=== PATIENT | female | born 1970 | race Two or more races ===

== ENCOUNTER 2018-10-26 04:25 | Emergency (ER) | payer SELFPAY ==
[2018-10-26 04:41] VITALS: BMI 29.5
--- NOTE | 2018-10-26 04:45 | PDOC ---
*Physical Exam - Vital Signs Last Vital Signs Temp Pulse Resp BP Pulse Ox 98.8 F 65 22 H 127/82 100 10/26/18 04:27 10/26/18 04:27 10/26/18 04:27 10/26/18 04:27 10/26/18 04:27 ED Treatment Course - LABORATORY CBC & Chemistry Diagram: 10/26/18 06:30 10/26/18 06:30 Medical Decision Making - Medical Decision Making 10/26/18 04:44 Patient seen by the advanced practice provider under my direct supervision. Ancillary testing reviewed as necessary. I agree with plan as outlined by the advanced practice provider. 10/27/18 19:51 pt signed out to day shift pending further evaluation *DC/Admit/Observation/Transfer Diagnosis at time of Disposition: Abdominal pain Qualifiers: Abdominal location: generalized Qualified Code(s): R10.84 - Generalized abdominal pain - Discharge Dispostion Disposition: TRANSFER ACUTE CARE/OTHER HOSP Condition at time of disposition: Fair - Prescriptions Prescriptions: Acetaminophen [Tylenol -] 1,000 mg PO Q6H #30 tablet Ibuprofen 800 mg PO TID #30 tablet Ondansetron [Zofran Odt -] 4 mg SL TID #10 od.tablet Ranitidine [Zantac -] 150 mg PO BID #28 tablet - Referrals Referrals: Gomez Sibley MD [Staff Physician] - - Patient Instructions Printed Discharge Instructions: DI for Abdominal Pain-Adult Additional Instructions: Your CT scan shows liver disease, however,there was no acute reason for your abdominal pain Please follow up with a loom blower for further evaluation. A referral has been provided to you Take the medication as prescribed to help with your pain Return to the ED for any new or worsening symptoms - Post Discharge Activity
[2018-10-26] MEDS ORDERED: ONDANSETRON 4 MG/2 ML VIAL IVPUSH ONE (04:46)
[2018-10-26] MEDS ORDERED: ONDANSETRON 4 MG/2 ML VIAL ONE (04:49)
[2018-10-26] MEDS ORDERED: FAMOTIDINE 20 MG/50 ML IVPB 20 MG/50 ML MG IVPB ONE ×2 (04:52→04:59)
[2018-10-26] MEDS ORDERED: SODIUM CHLORIDE 0.9% 500 ML INFUS.BAG IV ONE (04:52)
--- NOTE | 2018-10-26 04:55 | PDOC ---
History of Present Illness - General Chief Complaint: Pain Stated Complaint: ABD PAIN Time Seen by Provider: 10/26/18 04:33 History Source: Patient - History of Present Illness Initial Comments: 10/26/18 05:11 47 year old female c/o generalized abdominal pain and vomiting on and off x 2 months. patient reports poor pain control. patient has a past medical history of hypertension, cardiomyopathy, gastric sleeve surgery 1 year ago. patient has been following up OSH ER and was given percocet for pain. Past History - Past Medical History Allergies/Adverse Reactions: Allergies Allergy/AdvReac Type Severity Reaction Status Date / Time No Known Allergies Allergy Verified 10/26/18 12:22 Home Medications: Ambulatory Orders Carvedilol [Coreg -] 6.25 mg PO BID 10/29/14 Lisinopril [Zestril] 10 mg PO ASDIR 10/29/14 Oxycodone HCl/Acetaminophen [Percocet 5/325 -] 1 tab PO Q4H PRN #24 tablet 10/29 Acetaminophen [Tylenol -] 1,000 mg PO Q6H #30 tablet 10/26/18 Ibuprofen 800 mg PO TID #30 tablet 10/26/18 Ondansetron [Zofran Odt -] 4 mg SL TID #10 od.tablet 10/26/18 Ranitidine [Zantac -] 150 mg PO BID #28 tablet 10/26/18 Cancer: Yes Diabetes: Yes HTN: Yes - Surgical History Cardiac Surgery: Yes (PACEMAKER) - Suicide/Smoking/Psychosocial Hx Smoking History: Never smoked Have you smoked in the past 12 months: No Information on smoking cessation initiated: No Hx Alcohol Use: No Drug/Substance Use Hx: No Substance Use Type: None Review of Systems - Review of Systems Able to Perform ROS?: Yes Is the patient limited Surinamese proficient: No Constitutional: No: Symptoms Reported, See HPI, Chills, Diaphoresis, Fever, Loss of Appetite, Malaise, Night Sweats, Weakness, Weight Stable, Unintentional Wgt. Loss, Unexplained wgt Loss, Other *Physical Exam - Vital Signs Last Vital Signs Temp Pulse Resp BP Pulse Ox 98.8 F 65 22 H 127/82 100 10/26/18 04:27 10/26/18 04:27 10/26/18 04:27 10/26/18 04:27 10/26/18 04:27 - Physical Exam General Appearance: Yes: Apparent Distress Respiratory/Chest: positive: Lungs Clear, Normal Breath Sounds Gastrointestinal/Abdominal: positive: Normal Bowel Sounds, Tender (generalized) Integumentary: positive: Dry, Warm Neurologic: positive: Fully Oriented, Alert ED Treatment Course - LABORATORY CBC & Chemistry Diagram: 10/26/18 06:30 10/26/18 06:30 - Medications Given in the ED: ED Medications Discontinued Medications Generic Name Dose Route Start Last Admin Trade Name Seth PRN Reason Stop Dose Admin Ondansetron HCl 4 mg 10/26/18 04:46 10/26/18 04:52 Zofran Injection IVPUSH 10/26/18 04:47 4 mg ONCE ONE Administration Sodium Chloride 1,000 ml 10/26/18 04:52 10/26/18 04:53 Normal Saline - IV 10/26/18 04:53 1,000 ml ONCE ONE Administration Progress Note - Progress Note Progress Note: A: abdominal pain P: labs IVF zofran pepcid morphine CTAP Medical Decision Making - Medical Decision Making 10/26/18 06:[address] [facility] unable to get info on patient's recent visit/ 10/26/18 06:07 patient is refusing labs until pain is controlled. patient was already given morphine few minutes prior to reevaluation. 10/26/18 0700 patient signed out to GUERITA Kennedy. pending labs and CTAP/ *DC/Admit/Observation/Transfer Diagnosis at time of Disposition: Abdominal pain Qualifiers: Abdominal location: generalized Qualified Code(s): R10.84 - Generalized abdominal pain - Discharge Dispostion Disposition: HOME Condition at time of disposition: Fair - Prescriptions Prescriptions: Acetaminophen [Tylenol -] 1,000 mg PO Q6H #30 tablet Ibuprofen 800 mg PO TID #30 tablet Ondansetron [Zofran Odt -] 4 mg SL TID #10 od.tablet Ranitidine [Zantac -] 150 mg PO BID #28 tablet - Referrals Referrals: Gomez Sibley MD [Staff Physician] - - Patient Instructions Printed Discharge Instructions: DI for Abdominal Pain-Adult Additional Instructions: Your CT scan shows liver disease, however,there was no acute reason for your abdominal pain Please follow up with a dramatic critic for further evaluation. A referral has been provided to you Take the medication as prescribed to help with your pain Return to the ED for any new or worsening symptoms - Post Discharge Activity
[2018-10-26] MEDS ORDERED: morphine CARPU-JECT 4 MG/1 ML DISP.SYRIN IVPUSH ONE ×2 (05:26→07:55)
[2018-10-26] MEDS ORDERED: morphine SULFATE 4 MG/ML VIAL ONE (05:41)
[2018-10-26] MEDS ORDERED: ACETAMINOPHEN 1000 MG/100 ML VIAL (NON FORMULARY) IVPB ONE (06:27)
[2018-10-26] MEDS ORDERED: ACETAMINOPHEN INJECTION 100 ML IVPB ONE (06:28)
[2018-10-26 06:36] LABS: BASO % 0.6 % (0-2.0); EOS % 0.7 % (0-4.5); HEMATOCRIT 37.8 % (32.4-45.2); HEMOGLOBIN 12.6 GM/dL (10.7-15.3); MCHC 33.3 g/dl (32.0-36.0); MEAN PLT VOLUME 8.9 fl (7.5-11.1); MONO % 3.7 % (3.8-10.2); PLATELET COUNT 169 K/MM3 (134-434); RBC 4.35 M/mm3 (3.60-5.2); RDW 13.8 % (11.6-15.6)
[2018-10-26 07:19] LABS: ALBUMIN 3.5 g/dl (3.4-5.0); ALK PHOS 113 U/L (45-117); ANION GAP 9 MMOL/L (8-16); BILIRUBIN,TOTAL 1.3 mg/dL (0.2-1); BLOOD UREA NITROGEN 15 mg/dL (7-18); CALCIUM 8.8 mg/dL (8.5-10.1); CHLORIDE 107 mmol/L (98-107); CO2 22 mmol/L (21-32); CREATININE 0.8 mg/dL (0.55-1.3); GLUCOSE,RANDOM 117 mg/dL (74-106); LIPASE 198 U/L (73-393); SGOT/AST 86 U/L (15-37); SGPT/ALT 51 U/L (13-61); SODIUM 137 mmol/L (136-145); TOT PROT 7.7 g/dl (6.4-8.2)
--- NOTE | 2018-10-26 07:19 | PDOC ---
*Physical Exam - Vital Signs Last Vital Signs Temp Pulse Resp BP Pulse Ox 98.8 F 65 22 H 127/82 100 10/26/18 04:27 10/26/18 04:27 10/26/18 04:27 10/26/18 04:27 10/26/18 04:27 - Physical Exam General Appearance: Yes: Nourished, Appropriately Dressed. No: Apparent Distress ED Treatment Course - LABORATORY CBC & Chemistry Diagram: 10/26/18 06:30 10/26/18 06:30 - ADDITIONAL ORDERS Additional order review: Laboratory Results 10/26/18 06:30 Serum , Qual Negative 10/26/18 06:30 RBC 4.35 MCV 87.0 MCHC 33.3 RDW 13.8 MPV 8.9 Neutrophils % 81.0 Lymphocytes % 14.0 Monocytes % 3.7 L Eosinophils % 0.7 Basophils % 0.6 - Medications Given in the ED: ED Medications Discontinued Medications Generic Name Dose Route Start Last Admin Trade Name Kevinq PRN Reason Stop Dose Admin Acetaminophen 1,000 mg 10/26/18 06:27 10/26/18 06:33 Ofirmev Injection - IVPB 10/26/18 06:28 1,000 mg ONCE ONE Administration Famotidine/Sodium Chloride 20 mg in 50 mls @ 100 mls/hr 10/26/18 04:52 05:05 Pepcid 20 Mg Premixed Ivpb - IVPB 10/26/18 05:21 100 mls/hr ONCE ONE Administration Morphine Sulfate 4 mg 10/26/18 05:26 10/26/18 05:48 Morphine Injection - IVPUSH 10/26/18 05:27 4 mg ONCE ONE Administration Ondansetron HCl 4 mg 10/26/18 04:46 10/26/18 04:52 Zofran Injection IVPUSH 10/26/18 04:47 4 mg ONCE ONE Administration Sodium Chloride 1,000 ml 10/26/18 04:52 10/26/18 04:53 Normal Saline - IV 10/26/18 04:53 1,000 ml ONCE ONE Administration Medical Decision Making - Medical Decision Making 10/26/18 07:18 Sign out received from JACK Baez. Pt came for evaluation of abdominal pain. States she is currently in pain. Pt received Morphine and Ofirmev within the hour. Will hold off on more medications at this time. Pending labs so pt can go to CT 10/26/18 10:25 Pt appears more comfortable after morphine. CT scans shows diffuse fatty liver infiltration, distended gall bladder without wall thickening, stones or signs of cholecystitis Pt refuses abdominal exam Will give one shot of toradol and dc home Pt states she has an appointment with her primary care doctor today I discussed the physical exam findings, ancillary test results and final diagnoses with the patient. I answered all of the patient's questions. The patient was satisfied with the care received and felt comfortable with the discharge plan and treatment plan. The Patient agrees to follow up with the primary care physician/specialist within 24-72 hours. Return precautions were given. *DC/Admit/Observation/Transfer Diagnosis at time of Disposition: Abdominal pain Qualifiers: Abdominal location: generalized Qualified Code(s): R10.84 - Generalized abdominal pain - Discharge Dispostion Disposition: HOME Condition at time of disposition: Fair Decision to Admit order: No - Prescriptions Prescriptions: Acetaminophen [Tylenol -] 1,000 mg PO Q6H #30 tablet Ibuprofen 800 mg PO TID #30 tablet Ondansetron [Zofran Odt -] 4 mg SL TID #10 od.tablet Ranitidine [Zantac -] 150 mg PO BID #14 tablet Ranitidine [Zantac -] 150 mg PO BID #28 tablet - Referrals Referrals: Gomez Sibley MD [Staff Physician] - - Patient Instructions Printed Discharge Instructions: DI for Abdominal Pain-Adult Additional Instructions: Your CT scan shows liver disease, however,there was no acute reason for your abdominal pain Please follow up with a histology supervisor for further evaluation. A referral has been provided to you Take the medication as prescribed to help with your pain Return to the ED for any new or worsening symptoms - Post Discharge Activity
[2018-10-26] MEDS ORDERED: SODIUM CHLORIDE 1,000 ML IV STA (07:45)
[2018-10-26] MEDS ORDERED: MORPHINE SULFATE 10 MG/1 ML *VIAL ONE (07:58)
[2018-10-26] MEDS ORDERED: KETOROLAC TROMETHAMINE 30 MG/1 ML VIAL IVPUSH ONE (09:44)
[2018-10-26] MEDS ORDERED: KETOROLAC TROMETHAMINE 30 MG/1 ML VIAL ONE (09:48)
[2018-10-26 11:04] VITALS: BP 102/48; PULSE 87; TEMP 98.7
[2018-10-27 09:56] LABS: LDH 328 U/L (84-246)
--- NOTE | 2018-10-27 10:36 | PDOC ---
Patient Follow-up (Call Back) - Post ED Follow - Up Condition at time of discharge: Fair Disposition at time of original discharge: TRANSFER ACUTE CARE/OTHER HOSP Reason for Call Back: Abnwl. Microbiology (Pt with GNB in blood cx. Pt was transferred to [facility]. Results d/w Dr. Almonte of the MICU and preliminary results faxed to unit. . MICU phone# [phone])
== END 2018-10-26 11:11 | disposition short-term general hospital (02) ==
LOC: JER 04:25
PROC: 3E0337Z Introduction of Electrolytic and Water Balance Substance into Peripheral Vein, Percutaneous Approach (ICD-10-PCS; principal; 2018-10-26)
PROC: 3E0333Z Introduction of Anti-inflammatory into Peripheral Vein, Percutaneous Approach (ICD-10-PCS; 2018-10-26)
PROC: 3E033NZ Introduction of Analgesics, Hypnotics, Sedatives into Peripheral Vein, Percutaneous Approach (ICD-10-PCS; 2018-10-26)
PROC: 3E033NZ Introduction of Analgesics, Hypnotics, Sedatives into Peripheral Vein, Percutaneous Approach (ICD-10-PCS; 2018-10-26)
DX: R10.84 Generalized abdominal pain (principal); I10 Essential (primary) hypertension; I11.9 Hypertensive heart disease without heart failure; I43 Cardiomyopathy in diseases classified elsewhere; Z98.84 Bariatric surgery status
CPT/HCPCS: 36415; 74177-TC; 80053; 83615; 83690; 84702; 84703; 85025; 99282-25; J0131; J7030

== ENCOUNTER 2018-10-26 12:18 | Emergency (ER) | payer OTHER ==
[2018-10-26 12:37] VITALS: BMI 29.5
[2018-10-26] MEDS ORDERED: SODIUM CHLORIDE 0.9% 1000 ML INFUS.BAG IV ONE ×4 (12:37→19:40)
--- NOTE | 2018-10-26 12:43 | PDOC ---
History of Present Illness - General Chief Complaint: Blood Pressure Problem Stated Complaint: LOW BLOOD PRESSURE Time Seen by Provider: 10/26/18 12:32 History Source: Patient, Care Provider Exam Limitations: Clinical Condition - History of Present Illness Initial Comments: 10/26/18 12:41 47F with a PMH of HTN, cardiomyopathy, and gastric sleeve 1 year ago who presents to the ER altered after a possible syncopal episode. Pt was discharged at 1000 this morning and was waiting for her care provider in the waiting room. Care provider states that the patient was slouched over and altered. Pt denies taking any medications or illicit substances. Pt cannot provide any further history. Pt's only acute complaint is abdominal pain. Past History - Past Medical History Allergies/Adverse Reactions: Allergies Allergy/AdvReac Type Severity Reaction Status Date / Time No Known Allergies Allergy Verified 10/26/18 12:22 Home Medications: Ambulatory Orders Carvedilol [Coreg -] 6.25 mg PO BID 10/29/14 Lisinopril [Zestril] 10 mg PO ASDIR 10/29/14 Oxycodone HCl/Acetaminophen [Percocet 5/325 -] 1 tab PO Q4H PRN #24 tablet 10/29 Acetaminophen [Tylenol -] 1,000 mg PO Q6H #30 tablet 10/26/18 Ibuprofen 800 mg PO TID #30 tablet 10/26/18 Ondansetron [Zofran Odt -] 4 mg SL TID #10 od.tablet 10/26/18 Ranitidine [Zantac -] 150 mg PO BID #28 tablet 10/26/18 Cancer: Yes COPD: No Diabetes: Yes HTN: Yes - Surgical History Cardiac Surgery: Yes (PACEMAKER) - Suicide/Smoking/Psychosocial Hx Smoking History: Unknown if ever smoked Have you smoked in the past 12 months: No Hx Alcohol Use: No Drug/Substance Use Hx: No Substance Use Type: None Review of Systems - Review of Systems Able to Perform ROS?: No (clinical condition) *Physical Exam - Vital Signs Last Vital Signs Temp Pulse Resp BP Pulse Ox 80 12 57/30 L 97 10/26/18 12:20 10/26/18 12:20 10/26/18 12:20 10/26/18 12:20 - Physical Exam Comments: 10/26/18 13:14 GENERAL: Well developed, well nourished. Awake and alert. No acute distress. HEENT: Normocephalic, atraumatic. Hearing grossly normal. Moist mucous membranes. PERRLA, EOMI. No conjunctival pallor. Sclera are non-icteric. NECK: Supple. Full ROM. No JVD. CARDIOVASCULAR: Regular rate and rhythm. No murmurs, rubs, or gallops. PULMONARY: No evidence of respiratory distress. Lungs clear to auscultation bilaterally. No wheezing, rales or rhonchi. ABDOMINAL: Soft. Diffuse tenderness. Non-distended. No rebound or guarding. MUSCULOSKELETAL: Normal range of motion at all joints. No bony deformities or tenderness. EXTREMITIES: No cyanosis. No clubbing. No edema. No calf tenderness or swelling. SKIN: Warm and dry. Normal capillary refill. No rashes. No jaundice. NEUROLOGICAL: Alert, awake, appropriate. Cranial nerves 2-12 grossly intact. Normal speech. PSYCHIATRIC: Cooperative. Good eye contact. Appropriate mood and affect. ED Treatment Course - LABORATORY CBC & Chemistry Diagram: 10/26/18 12:35 10/26/18 12:35 - RADIOLOGY Radiology Studies Ordered: Category Date Time Status CHEST X-RAY PORTABLE* [RAD] Stat Radiology 10/26/18 12:33 Ordered Medical Decision Making - Medical Decision Making 10/26/18 13:39 47F with MMP who presents altered with abdominal pain, recently discharged from our ED, and hypotensive. Fluids started immediately. Pt vomiting bilious fluids with elevated liver enzymes, new from 4 hours ago. Concern for cholecystitis vs choledocholithiasis. RUQ US ordered. Giving reglan for nausea control and abx for empiric coverage. 10/26/18 15:00 POCUS shows thickened GB wall 0.9 cm with pericholecystic fluid concerning for cholecystitis. Surgery paged. Continuing resuscitation. 10/26/18 16:13 Dr. Calzada, ICU resident, aware of pt. Lipase elevated. GI paged. Continuing resuscitation. IVF and IV abx given. Pt mentating well c/w prior presentation. GUERITA Joiner, surgery, evaluating patient. 10/26/18 17:[address] Hao Pizano for admission. 10/26/18 19:28 Pt's BP 90's/50's after 3 liters. Central line placed in sterile fashion. Blood flow and return noted at 3 ports. Pending portable CXR. Case d/w inpt team and suggestion for transfer. Attending d/w Dr. Abernathy at [facility] for transfer. Dr. Abernathy accepts transfer. Will start levophed and titrate to systolic of 120. 10/26/18 19:[address] Augustine at [facility]. 10/26/18 19:[address] Haile for care until transfer. *DC/Admit/Observation/Transfer Diagnosis at time of Disposition: Cholecystitis, Pancreatitis - Discharge Dispostion Disposition: TRANSFER ACUTE CARE/OTHER HOSP Condition at time of disposition: Critical Decision to Admit order: No - Referrals - Patient Instructions - Post Discharge Activity - Transfer to Acute Care Facility Receiving Facility: [facility] Accepting Physician:: Dr. Abernathy
[2018-10-26] MEDS ORDERED: METOCLOPRAMIDE HCL INJECTION 10 MG/2 ML VIAL IVPB ONE (12:46)
[2018-10-26 12:51] LABS: HEMATOCRIT 44.2 % (32.4-45.2); HEMOGLOBIN 14.5 GM/dL (10.7-15.3); MCH 28.8 pg (25.7-33.7); MCHC 32.8 g/dl (32.0-36.0); MEAN CELL VOLUME 87.8 fl (80-96); MEAN PLT VOLUME 9.1 fl (7.5-11.1); PLATELET COUNT 175 K/MM3 (134-434); RBC 5.03 M/mm3 (3.60-5.2); RDW 14.1 % (11.6-15.6); WHITE BLOOD COUNT 8.9 K/mm3 (4.0-10.0)
[2018-10-26] MEDS ORDERED: METOCLOPRAMIDE HCL INJECTION 10 MG/2 ML VIAL ONE (13:06)
--- NOTE | 2018-10-26 13:12 | PDOC ---
Attending Attestation - Resident Resident Name: Cholo Mclainony - ED Attending Attestation I have performed the following: I have examined & evaluated the patient, The case was reviewed & discussed with the resident, I agree w/resident's findings & plan - HPI HPI: 10/26/18 13:10 47-year-old female history of gastric bypass evaluated here over the last few hours for acute on chronic abdominal pain, had negative workup including labs and CAT scan of the abdomen and pelvis with improved symptoms after receiving IV morphine 2, discharged very well-appearing and alert and ambulatory, was waiting in the waiting room for her ride to pick her up and was found to be somnolence. Patient is arousable to voice, complaining of lightheadedness and nausea. Denies taking any medications since discharge - Physicial Exam PE: 10/26/18 13:11 Hypotensive, not tachycardic Moving all extremities, pupils are symmetric Heart is regular, abdomen is soft and nondistended Neurologically nonfocal - Critical Care Time Total Critical Care Time: 50 Critical Care Statement: The care of this patient involved high complexity decision making to prevent further life threatening deterioration of the patient 's condition and/or to evaluate & treat vital organ system(s) failure or risk of failure. - Medical Decision Making 10/26/18 13:11 47-year-old female with chronic abdominal pain and negative ED workup, received 2 doses of IV morphine but discharged alert and well-appearing now with somnolence/altered mental status without evidence of trauma. Blood pressure decreased, heart rate otherwise normal. Check labs, EKG IV fluid resuscitation CT head, tox workup Close monitoring 10/26/18 14:31 nl wbc but newly elevated LFTs. Given CT finding of distended gallbladder, concern for acute cholecystitis. ivf resuscitation, iv abx RUQ U/S when can tolerate surgery consult, admission 10/26/18 15:04 bedside u/s shows distended GB, wall thickening with pericholecystic fluid. wbc wnl but 11.9 bands sending lactate/cultures BP improved to 70s systolic after iv fluids, continue iv fluids and consider pressors icu admission, surgery consult 10/26/18 16:08 lipase also markedly elevated, concerning for acute choledocholithiasis ivf resuscitated, received abx, GI, gen surg, ICU consulted mental status markedly improved Heart Score/ECG Review #1 ECG reviewed & interpreted by me at: 13:04 General ECG Interpretation: Sinus Rhythm (early beats a-sensed), Normal Rate (85 ), Normal Intervals (qtc 540), No acute ischemic changes
[2018-10-26 13:25] LABS: ALBUMIN 3.4 g/dl (3.4-5.0); ALK PHOS 180 U/L (45-117); ANION GAP 11 MMOL/L (8-16); BILIRUBIN,TOTAL 3.3 mg/dL (0.2-1); BLOOD UREA NITROGEN 15 mg/dL (7-18); CALCIUM 9.2 mg/dL (8.5-10.1); CHLORIDE 108 mmol/L (98-107); CO2 19 mmol/L (21-32); CREATININE 1.2 mg/dL (0.55-1.3); GLUCOSE,RANDOM 109 mg/dL (74-106); POTASSIUM 3.6 mmol/L (3.5-5.1); SGOT/AST 625 U/L (15-37); SGPT/ALT 364 U/L (13-61); SODIUM 138 mmol/L (136-145); TOT PROT 7.4 g/dl (6.4-8.2)
[2018-10-26] MEDS ORDERED: PIPERACILLIN/TAZOB 4.5 GM 4.5 GM in DEXTROSE 5%-WATER 100 ML IVPB ONE (13:28)
[2018-10-26] MEDS ORDERED: PIPERACILLIN/TAZOB 4.5 GM 4.5 GM/100 ML BAG IVPB ONE (14:09)
[2018-10-26 14:29] LABS: ANISOCYTOSIS 1+; MACROCYTOSIS 0; PLATELET ESTIMATE NORMAL
[2018-10-26 14:53] LABS: INR 1.07 (0.83-1.09); PROTHROMBIN TIME (PATIENT) 12.6 SEC (9.7-13.0)
--- NOTE | 2018-10-26 15:03 | EKG ---
Test Reason : Blood Pressure : / mmHG Vent. Rate : 085 BPM Atrial Rate : 085 BPM P-R Int : 150 ms QRS Dur : 130 ms QT Int : 454 ms P-R-T Axes : 068 -60 -39 degrees QTc Int : 540 ms NORMAL SINUS RHYTHM Fusion complexes suggesting PPM failure to sense Atrial-sensed ventricular-paced rhythm ABNORMAL ECG NO PREVIOUS ECGS AVAILABLE Confirmed by MD Gunnar, Luis ([id number]) on 10/26/2018 3:03:01 PM Referred By: Confirmed By:Luis Maher MD
[2018-10-26 15:48] LABS: LIPASE 17851 U/L (73-393)
--- NOTE | 2018-10-26 16:19 | CONSULT ---
Consult Consult Specialty:: General Surgery - Dev Gentile Referred by:: ED Attending Reason for Consultation:: ABD pain. Elevated LFTs. - History of Present Illness Chief Complaint: Intermittent ABD pain x 2 months with n/v History of Present Illness: Called to nikolay 47F w/ PMHx as noted below. Patient comes to [facility] Ed w/ c/o chronic intermittent ABD pain x 1 month. She was being observed for the past couple of hours because her work-up thus far has been negative (ABD/Pelvis CT scan, LABS). Per ED Resident, patient's symptoms seemed to resolved after receiving IV Morphine x 2 doses. She was set to be discharged home today. While seated in waiting room for her ride, she was found to be somnolent. According to documentation, she is arousable to voice, c/o of lightheadedness and nausea. Denies taking any medications since discharge. Patient states she's typically goes to [facility] when the ABD pain acts-up. States they usually give her pain medication and send her home. ED attending at [facility] ED performed bedside U/S and ANALY. Below are the results. Her LFTs apparently also are now elevated compared to earlier set of labs. Patient started her menses today (10/26/18). States she hasn't eaten anything since yesterday. Focused ED RUQ ultrasound. Indication: ^ LFT's, hypotension Several small gallstones, + wall thickening up to 9 mm, wall edema. no sonographic torres's CBD not dilated (<4 mm). + perihepatic/ pericholecystic fluid noted. Impression: cholecystitis/lithiasis, pc fluid and wall edema. small trace fluid in pelvis (chronic liver disease and chf) Focused ED TTE Indication hypotension, h/o CHF No pericardial effusion identified. Moderate to severe reduced contractility. Some dyskinetic wall motion noted in parasternal long view. no RV dilation . Impression: moderate to severe reduced contractility - History Source History Provided By: Patient Limitations to Obtaining History: No Limitations - Past Medical History Cardio/Vascular: Yes: CHF, Deep Vein Thrombosis, HTN Pulmonary: Yes: Pulmonary Embolus ...LMP Comment: Started 10/26/18 - Past Surgical History Past Surgical History: Yes: Bariatric Surgery (Sleeve Gastrectomy), ( x 2), Permanent Pacemaker - Alcohol/Substance Use Hx Alcohol Use: No - Smoking History Smoking history: Unknown if ever smoked Have you smoked in the past 12 months: No - Social History ADL: Independent History of Recent Travel: No Home Medications - Allergies Allergies/Adverse Reactions: Allergies Allergy/AdvReac Type Severity Reaction Status Date / Time No Known Allergies Allergy Verified 10/26/18 12:22 - Home Medications Home Medications: Ambulatory Orders Carvedilol [Coreg -] 6.25 mg PO BID 10/29/14 Lisinopril [Zestril] 10 mg PO ASDIR 10/29/14 Oxycodone HCl/Acetaminophen [Percocet 5/325 -] 1 tab PO Q4H PRN #24 tablet 10/29 Acetaminophen [Tylenol -] 1,000 mg PO Q6H #30 tablet 10/26/18 Ibuprofen 800 mg PO TID #30 tablet 10/26/18 Ondansetron [Zofran Odt -] 4 mg SL TID #10 od.tablet 10/26/18 Ranitidine [Zantac -] 150 mg PO BID #28 tablet 10/26/18 Family Disease History - Family Disease History Family History: Unremarkable Review of Systems - Review of Systems Constitutional: reports: Lethargy, Loss of Appetite. denies: Night Sweats, Weakness Eyes: reports: No Symptoms HENT: reports: No Symptoms Neck: reports: No Symptoms Cardiovascular: denies: Chest Pain, Edema, Palpitations, Shortness of Breath Respiratory: denies: Cough, SOB, SOB on Exertion, Wheezing Gastrointestinal: reports: Abdominal Pain, Diarrhea, Nausea, Vomiting. denies: Melena, Rectal Bleeding Genitourinary: reports: No Symptoms Breasts: reports: No Symptoms Reported Musculoskeletal: reports: No Symptoms Integumentary: reports: No Symptoms Neurological: reports: No Symptoms Endocrine: reports: No Symptoms Hematology/Lymphatic: reports: No Symptoms Pain Intensity: 8 Physical Exam Vital Signs: Vital Signs Temperature Pulse Rate 88 10/26/18 15:46 Respiratory Rate 12 10/26/18 15:46 Blood Pressure 87/60 L 10/26/18 15:46 O2 Sat by Pulse Oximetry (%) 100 10/26/18 15:46 Constitutional: Yes: Well Nourished Eyes: Yes: WNL HENT: Yes: WNL, Atraumatic, Normocephalic Neck: Yes: WNL, Supple, Trachea Midline Respiratory: Yes: WNL Gastrointestinal: Yes: Abdomen, Obese, Tenderness (RUQ), Tenderness, Epigastrium. No: Distention, Hernia, Melena, Palpable Mass, Pulsatile Mass, Rectal Bleeding ...Rectal Exam: Yes: Deferred Renal/: Yes: Menses Present. No: CVA Tenderness - Left, CVA Tenderness - Right Musculoskeletal: Yes: WNL Extremities: Yes: WNL Edema: No Peripheral Pulses WNL: Yes Neurological: Yes: WNL ...Motor Strength: WNL Psychiatric: Yes: WNL Labs: CBC, BMP 10/26/18 12:35 10/26/18 12:35 Hepatic Panel Total Bilirubin 3.3 mg/dL (0.2-1) H 10/26/18 12:35 AST 625 U/L (15-37) H 10/26/18 12:35 ALT 364 U/L (13-61) H 10/26/18 12:35 Alkaline Phosphatase 180 U/L (45-117) H 10/26/18 12:35 Albumin 3.4 g/dl (3.4-5.0) 10/26/18 12:35 INR, PTT INR 1.07 (0.83-1.09) 10/26/18 14:20 Lipase 10/26/18 12:35 Lipase 70416 H Imaging - Results Chest X-ray: Report Reviewed Cat Scan: Report Reviewed Problem List - Problems (1) Abdominal pain Code(s): R10.9 - UNSPECIFIED ABDOMINAL PAIN Qualifiers: Abdominal location: generalized Qualified Code(s): R10.84 - Generalized abdominal pain (2) HTN (hypertension) Code(s): I10 - ESSENTIAL (PRIMARY) HYPERTENSION (3) CHF (congestive heart failure) Code(s): I50.9 - HEART FAILURE, UNSPECIFIED Assessment/Plan 47 yo female, morbidly obese. Admitted with ABD pain (intermittent over past 2 months associated with n/v/d). Acutely elevated LFTs and Lipase. Current working diagnosis is GS Pancreatitis, Cholecystitis vs. Choledocholithiasis, hypotension. The following are recommendations: NPO IVF Resuscitation GI/DVT PPX GI Consult Cardio Consult ICU Consult Trend Lipase f/u repeat ABD/Pelvis CT Possible MRCP pending CT results Monitor CBC/BMP Surgery Team to continue following Above plan discussed with Dr. Gentile and agrees. Visit type - Emergency Visit Emergency Visit: Yes Care time: The patient presented to the Emergency Department on the above date and was hospitalized for further evaluation of their emergent condition. - New Patient This patient is new to me today: Yes Date on this admission: 10/26/18 - Critical Care Critical Care patient: Yes Total Critical Care Time (in minutes): 35 Critical Care Statement: The care of this patient involved high complexity decision making to prevent further life threatening deterioration of the patient 's condition and/or to evaluate & treat vital organ system(s) failure or risk of failure.
--- NOTE | 2018-10-26 16:54 | CONSULT ---
Consult Consult Specialty:: Pulm/CCM Referred by:: Dr. Mclain Reason for Consultation:: Hypotension - History of Present Illness History of Present Illness: 47 yo F h/o gastric sleeve, cardiomyopathy s/p pacemaker, CHF, DVT and PE off AC since gastric sleeve, HTN p/w worsening abd pain, n/v, and watery diarrhea x 1 day. Patient endorses chronic epigastric pain for weeks and it suddenly got worse this morning. She was seen in the ER this AM but refused abd exam. With the negative finding of CT abd and normal lipase, she's discharged home after receiving toradol and morphine for pain. Patient came back to the ED for worsening symptoms with somnolence. Repeat blood work and bedside U/S showed acutely elevated lipase and thicken gallbladder. Patient stated that she usually goes the [place] for medical care, at where she's diagnosed with gallstone but no action has been taken thus far. Denies chest pain, shortness of breath, fever, chills, blood in stool, or urinary symptoms. - History Source History Provided By: Patient Limitations to Obtaining History: No Limitations - Past Medical History Cardio/Vascular: Yes: CHF, HTN - Past Surgical History Past Surgical History: Yes: Bariatric Surgery - Alcohol/Substance Use Hx Alcohol Use: Yes (quit 1 year ago, 2 glasses of wine since teen years) - Smoking History Smoking history: Unknown if ever smoked Have you smoked in the past 12 months: No - Social History ADL: Independent History of Recent Travel: No Home Medications - Allergies Allergies/Adverse Reactions: Allergies Allergy/AdvReac Type Severity Reaction Status Date / Time No Known Allergies Allergy Verified 10/26/18 12:22 - Home Medications Home Medications: Ambulatory Orders Carvedilol [Coreg -] 6.25 mg PO BID 10/29/14 Lisinopril [Zestril] 10 mg PO ASDIR 10/29/14 Oxycodone HCl/Acetaminophen [Percocet 5/325 -] 1 tab PO Q4H PRN #24 tablet 10/29 Acetaminophen [Tylenol -] 1,000 mg PO Q6H #30 tablet 10/26/18 Ibuprofen 800 mg PO TID #30 tablet 10/26/18 Ondansetron [Zofran Odt -] 4 mg SL TID #10 od.tablet 10/26/18 Ranitidine [Zantac -] 150 mg PO BID #28 tablet 10/26/18 Review of Systems - Review of Systems Constitutional: denies: Chills, Fever, Lethargy, Weakness Cardiovascular: denies: Chest Pain, Edema, Palpitations, Shortness of Breath Respiratory: denies: Cough, SOB on Exertion, Wheezing Gastrointestinal: reports: Abdominal Pain, Diarrhea, Nausea, Vomiting. denies: Melena, Rectal Bleeding Genitourinary: denies: Burning, Discharge, Dysuria Physical Exam Vital Signs: Vital Signs Temperature Pulse Rate 75 10/26/18 16:34 Respiratory Rate 14 10/26/18 16:34 Blood Pressure 90/67 10/26/18 16:34 O2 Sat by Pulse Oximetry (%) 100 10/26/18 16:34 Constitutional: Yes: No Distress, Anxious, Other (in pain) Cardiovascular: Yes: Regular Rate and Rhythm, S1, S2. No: Murmur Respiratory: Yes: CTA Bilaterally Gastrointestinal: Yes: Normal Bowel Sounds, Soft, Abdomen, Obese, Tenderness, Tenderness, Epigastrium. No: Distention, Tenderness, Rebound Edema: No Neurological: Yes: Alert, Oriented Labs: CBC, BMP 10/26/18 12:35 10/26/18 12:35 Imaging - Results Chest X-ray: Report Reviewed, Image Reviewed X-ray: Report Reviewed, Image Reviewed Cat Scan: Report Reviewed, Image Reviewed Assessment/Plan 47 yo F h/o gastric sleeve, cardiomyopathy s/p pacemaker, CHF, DVT and PE off AC since gastric sleeve, HTN admitted to the ICU for acute pancreatitis with hypotension. GI: acute pancreatitis w/ lactic acidosis and refractory hypotension, h/o gastric sleeve - [place] ~ 4-5 : low ICU mortality - qSOFA 1 - Lactic acidosis Type I 2/2 hypovolumia - Received 3L NS in ED, will cont. aggressive IV hydration with LR (1L bolus + standing @ 350 cc/hr) [1] - Maintain MAP > 65, will start levophed if unresponsive to fluid resuscitation - NPO - Monitor lytes and replete accordingly - Trend lactate - Pain control with morphine 2mg IVPUSH Q4H - GI and general surgery onboard - Repeat CT a/p if clinically no improvement for 48 hours CV: CHF, cardiomyopathy, HTN - Obtain official ECHO and CXR - IV hydration indicated despite h/o CHF[2] - Monitor clinical signs of fluid overload - Hold HTN meds Renal: stable - No sign of BALDEMAR ID: Stable - Observe off abx Pulm: stable - Supplemental O2 PRN Prophylaxis - DVT: heparin TID [1]Adrian WOODS, Vida SS, Goyo RK, Mildred ST. Fluid resuscitation in acute pancreatitis. Clin Gastroenterol Hepatol 2008; 6:1070. [2]Kay G, Surekha U, Vida SS. Current controversies in fluid resuscitation in acute pancreatitis: a systematic review. Pancreas 2012; 41:827. Amrik Calzada PGY3 ICU resident Visit type - Emergency Visit Emergency Visit: Yes Care time: The patient presented to the Emergency Department on the above date and was hospitalized for further evaluation of their emergent condition. - New Patient This patient is new to me today: Yes Date on this admission: 10/26/18 - Critical Care Critical Care patient: Yes Total Critical Care Time (in minutes): 35 Critical Care Statement: The care of this patient involved high complexity decision making to prevent further life threatening deterioration of the patient 's condition and/or to evaluate & treat vital organ system(s) failure or risk of failure.
[2018-10-26] MEDS ORDERED: LACTATED RINGERS SOLUTION 1,000 ML/1,000 ML INFUS.BAG IV STA (17:01)
[2018-10-26] MEDS ORDERED: morphine SULFATE 4 MG/ML VIAL IVPUSH PRN (17:02)
[2018-10-26] MEDS ORDERED: LACTATED RINGERS SOLUTION 1,000 ML/1,000 ML INFUS.BAG IV SCH (18:15)
[2018-10-26] MEDS ORDERED: NOREPINEPHRINE BITARTRATE 4,000 MCG in DEXTROSE 5%-WATER - 496 ML IV SCH (19:15)
--- NOTE | 2018-10-26 19:28 | PDOC ---
*Physical Exam - Vital Signs Last Vital Signs Temp Pulse Resp BP Pulse Ox 98.6 F 82 14 91/60 98 10/26/18 17:55 10/26/18 18:35 10/26/18 18:35 10/26/18 18:35 10/26/18 18:35 ED Treatment Course - LABORATORY CBC & Chemistry Diagram: 10/26/18 12:35 10/26/18 12:35 - ADDITIONAL ORDERS Additional order review: Laboratory Results 10/26/18 10/26/18 10/26/18 15:45 14:20 12:41 PT with INR 12.60 INR 1.07 Sodium Potassium Chloride Carbon Dioxide Anion Gap BUN Creatinine Creat Clearance w eGFR POC Glucometer 85 Random Glucose Lactic Acid 3.2 H* Calcium Total Bilirubin AST ALT Alkaline Phosphatase Creatine Kinase Troponin I Total Protein Albumin Lipase Acetaminophen Alcohol, Quantitative 10/26/18 12:35 PT with INR INR Sodium 138 Potassium 3.6 Chloride 108 H Carbon Dioxide 19 L Anion Gap 11 BUN 15 Creatinine 1.2 Creat Clearance w eGFR 48.15 POC Glucometer Random Glucose 109 H Lactic Acid Calcium 9.2 Total Bilirubin 3.3 H AST 625 H ALT 364 H Alkaline Phosphatase 180 H Creatine Kinase 75 Troponin I 0.02 Total Protein 7.4 Albumin 3.4 Lipase 63231 H Acetaminophen < 2 L Alcohol, Quantitative < 3.0 10/26/18 10/26/18 12:41 12:35 RBC 5.03 MCV 87.8 MCHC 32.8 RDW 14.1 MPV 9.1 Neutrophils % No Result Required. Lymphocytes % No Result Required. POC Glucometer 85 - Medications Given in the ED: ED Medications Discontinued Medications Generic Name Dose Route Start Last Admin Trade Name Seth PRN Reason Stop Dose Admin Fentanyl 25 mcg 10/26/18 14:12 10/26/18 14:53 Sublimaze Injection - IVPUSH 10/26/18 14:13 25 mcg ONCE ONE Administration Piperacillin Sod/Tazobactam 100 mls @ 200 mls/hr 10/26/18 13:28 10/26/18 14: 20 Sod 4.5 gm/ Dextrose IVPB 10/26/18 13:57 200 mls/hr ONCE ONE Administration Protocol Lactated Ringer's 1,000 ml in 1,000 mls @ 1,000 mls/hr 10/26/18 17:01 18:15 Lactated Ringers Solution IV 10/26/18 18:00 1,000 mls/hr ONCE STA Administration Metoclopramide HCl 10 mg 10/26/18 12:46 10/26/18 13:16 Reglan Injection - IVPB 10/26/18 12:47 10 mg ONCE ONE Administration Sodium Chloride 1,000 ml 10/26/18 12:37 10/26/18 13:00 Normal Saline - IV 10/26/18 12:38 1,000 ml ONCE ONE Administration Sodium Chloride 1,000 ml 10/26/18 14:30 10/26/18 14:53 Normal Saline - IV 10/26/18 14:31 1,000 ml ONCE ONE Administration Sodium Chloride 1,000 ml 10/26/18 16:13 10/26/18 16:32 Normal Saline - IV 10/26/18 16:14 1,000 ml ONCE ONE Administration Medical Decision Making - Medical Decision Making Central Line performed. Good flow, sterile field applied, patient tolerated procedure well. *DC/Admit/Observation/Transfer Diagnosis at time of Disposition: Cholecystitis, Pancreatitis - Discharge Dispostion Condition at time of disposition: Critical - Referrals - Patient Instructions - Post Discharge Activity Procedures - Central Line Central Line Lumen: triple Central Line Position: internal jugular (R) Anesthesia: 1% Lidocaine Amount of anesthesia (ccs): 10 Complications: none Post Central Line Insertion: sutured, good blood return, position confirmed w/ CXR
[2018-10-26] MEDS ORDERED: NOREPINEPHRINE BITARTRATE 4 MG/4 ML ML IV ONE (19:30)
[2018-10-26] MEDS ORDERED: morphine SULFATE 4 MG/ML VIAL ONE (20:54)
[2018-10-26] MEDS ORDERED: ACETAMINOPHEN 1000 MG/100 ML VIAL (NON FORMULARY) IVPB ONE (20:55)
[2018-10-26] MEDS ORDERED: MUPIROCIN 2% TOPICAL OINTMENT FOR DECOLONIZATION NS SCH (22:00)
[2018-10-26] MEDS ORDERED: HEPARIN NA (PORCINE) 5,000 UNITS/ML 1ML VIAL SQ SCH (22:00)
[2018-10-26] MEDS ORDERED: CHLORHEXIDINE GLUCONATE 4% CLEANSER FOR DECOLONIZATION TP SCH (22:00)
[2018-10-26] MEDS ORDERED: ONDANSETRON 4 MG/2 ML VIAL ONE (22:12)
[2018-10-26 22:36] VITALS: BP 109/55; PULSE 96; TEMP 98.5
== END 2018-10-26 23:34 | disposition short-term general hospital (02) ==
LOC: JER 12:18 → UNDOADMIN 16:04 → JERBED 16:04
PROC: 3E0337Z Introduction of Electrolytic and Water Balance Substance into Peripheral Vein, Percutaneous Approach (ICD-10-PCS; principal; 2018-10-26)
PROC: 3E0337Z Introduction of Electrolytic and Water Balance Substance into Peripheral Vein, Percutaneous Approach (ICD-10-PCS; 2018-10-26)
PROC: 3E03329 Introduction of Other Anti-infective into Peripheral Vein, Percutaneous Approach (ICD-10-PCS; 2018-10-26)
PROC: 3E033NZ Introduction of Analgesics, Hypnotics, Sedatives into Peripheral Vein, Percutaneous Approach (ICD-10-PCS; 2018-10-26)
PROC: 3E033NZ Introduction of Analgesics, Hypnotics, Sedatives into Peripheral Vein, Percutaneous Approach (ICD-10-PCS; 2018-10-26)
PROC: 3E033GC Introduction of Other Therapeutic Substance into Peripheral Vein, Percutaneous Approach (ICD-10-PCS; 2018-10-26)
PROC: 3E033GC Introduction of Other Therapeutic Substance into Peripheral Vein, Percutaneous Approach (ICD-10-PCS; 2018-10-26)
PROC: B246ZZZ Ultrasonography of Right and Left Heart (ICD-10-PCS; 2018-10-26)
PROC: BF43ZZZ Ultrasonography of Gallbladder and Bile Ducts (ICD-10-PCS; 2018-10-26)
DX: K85.80 Other acute pancreatitis without necrosis or infection (principal); K80.00 Calculus of gallbladder with acute cholecystitis without obstruction; I25.10 Atherosclerotic heart disease of native coronary artery without angina pectoris; I11.0 Hypertensive heart disease with heart failure; I42.8 Other cardiomyopathies; R94.5 Abnormal results of liver function studies; Z86.718 Personal history of other venous thrombosis and embolism; Z86.711 Personal history of pulmonary embolism; Z95.0 Presence of cardiac pacemaker; Z98.84 Bariatric surgery status
CPT/HCPCS: 36415; 71045-TC-FY; 76705-TC; 80053; 80307; 82550; 82962; 83605; 83690; 84484; 85025; 85610; 87040; 87186; 93005; 93010; 99285-25; J7030

== ENCOUNTER 2019-03-01 12:13 | Emergency (ER) | payer OTHER ==
--- NOTE | 2019-03-01 12:28 | PDOC ---
Rapid Medical Evaluation Time Seen by Provider: 03/01/19 12:24 Medical Evaluation: Allergies Allergy/AdvReac Type Severity Reaction Status Date / Time No Known Allergies Allergy Verified 10/26/18 12:22 03/01/19 12:24 Pt presents today for refill of her psychiatric medications. Pt was seeing Shay[facility] HELTON in [place] for her meds, however she has not been there recently because of difficulty getting there. Pt has anxiety, panic attacks and depression. She has been off her meds for three weeks. Pt uses [facility]. Denies SI/HI Exam: anxious, NAD Orders: Nothing Pt to proceed to the ER for further evaluation Discharge Disposition - Diagnosis Medication refill - Referrals - Patient Instructions - Post Discharge Activity
[2019-03-01 12:29] VITALS: BP 157/87; PULSE 74; TEMP 98; BMI 29.1
--- NOTE | 2019-03-01 13:12 | PDOC ---
History of Present Illness - General Chief Complaint: Depression Stated Complaint: Psychiatric Time Seen by Provider: 03/01/19 12:24 - History of Present Illness Initial Comments: Ms. Castellanos is a 48 y/o female with hx of cardiomyopathy, pancreatitis, CHF, anxiety, depression, presenting today for worsening symptoms of depression and anxiety. Reports that she used to follow with [facility] Lissette Sesay for psychiatric care and therapy, but her case was closed due to missed appointments. Reports that she is currently in the process of transferring her care to [facility] but has not been able to obtain her medications for two weeks. Reports worsening generalized anxiety and depression, decreased appetite, decreased interest in leaving the house, panic attacks. Denies any suicidal ideation or homicidal ideation. Reports 1 suicide attempt at the age of 15 but none other in the interval. Denies auditory or visual hallucinations. Denies ETOH or drug use. PCP: [facility] primary care PMH: pancreatitis, cardiomyopathy, SurgHx: cholecystectomy, c-sections SocHx: lives alone in apartment with rn case manager hospice visits, on disability insurance Psych meds: zoloft, xanax, ambien Past History - Past Medical History Allergies/Adverse Reactions: Allergies Allergy/AdvReac Type Severity Reaction Status Date / Time No Known Allergies Allergy Verified 03/01/19 12:29 Home Medications: Ambulatory Orders Carvedilol [Coreg -] 6.25 mg PO BID 10/29/14 Lisinopril [Zestril] 10 mg PO ASDIR 10/29/14 Oxycodone HCl/Acetaminophen [Percocet 5/325 -] 1 tab PO Q4H PRN #24 tablet 10/29 Acetaminophen [Tylenol -] 1,000 mg PO Q6H #30 tablet 10/26/18 Ibuprofen 800 mg PO TID #30 tablet 10/26/18 Ondansetron [Zofran Odt -] 4 mg SL TID #10 od.tablet 10/26/18 Ranitidine [Zantac -] 150 mg PO BID #28 tablet 10/26/18 Alprazolam [Xanax] 1 mg PO Q12H #4 tablet MDD 2 03/01/19 Sertraline HCl [Zoloft] 100 mg PO BID #10 tablet 03/01/19 Cancer: Yes COPD: No Diabetes: Yes HTN: Yes Psychiatric Problems: Yes (PTSD,Anxiety, Depression, Insomnia) - Surgical History Cardiac Surgery: Yes (PACEMAKER) - Suicide/Smoking/Psychosocial Hx Smoking History: Unknown if ever smoked Have you smoked in the past 12 months: No Information on smoking cessation initiated: No Hx Alcohol Use: No Drug/Substance Use Hx: No Substance Use Type: None Review of Systems - Review of Systems Comments:: ROS GENERAL/CONSTITUTIONAL: No fever or chills. No weakness._ HEAD, EYES, EARS, NOSE AND THROAT: No change in vision. No change in hearing. No sore throat._ CARDIOVASCULAR: No chest pain or shortness of breath_ RESPIRATORY: Denies cough, hemoptysis_ GASTROINTESTINAL: No nausea, vomiting, diarrhea or constipation._ GENITOURINARY: No dysuria, frequency, or change in urination._ MUSCULOSKELETAL: No joint or muscle swelling or pain. No neck or back pain._ SKIN: No rash_ NEUROLOGIC: No headache, vertigo, loss of consciousness, or change in strength/ sensation._ ENDOCRINE: No increased thirst. No abnormal weight change_ HEMATOLOGIC/LYMPHATIC: No anemia, easy bleeding, or history of blood clots._ ALLERGIC/IMMUNOLOGIC: No hives or skin allergy._ PSYCH: Reports depression, generalized anxiety, panic attacks *Physical Exam - Vital Signs Last Vital Signs Temp Pulse Resp BP Pulse Ox 98.0 F 74 16 157/87 100 03/01/19 12:26 03/01/19 12:26 03/01/19 12:26 03/01/19 12:26 03/01/19 12:26 - Physical Exam Comments: GENERAL: Awake, alert, and oriented to person/place/time, in no acute distress_ HEAD: No signs of trauma, normocephalic, atraumatic _ EYES: PERRLA, EOMI, sclera anicteric, conjunctiva clear_ ENT: Hearing grossly normal, nares patent, oropharynx clear without exudates. No uvular deviation. Moist mucosa_ NECK: Normal ROM, supple, no lymphadenopathy, JVD, or masses_ LUNGS: No distress, speaks in full sentences, clear to auscultation bilaterally _ HEART: Regular rate and rhythm, normal S1 and S2, no murmurs appreciated, peripheral pulses normal and equal bilaterally._ ABDOMEN: Soft, nontender, normoactive bowel sounds. No guarding, no rebound. No masses_ EXTREMITIES: Normal inspection, Normal range of motion, no edema. No clubbing or cyanosis_ NEUROLOGICAL: Cranial nerves II through XII grossly intact. Normal speech, normal gait, no focal sensorimotor deficits _ SKIN: Warm, Dry, normal turgor, no rashes or lesions noted Medical Decision Making - Medical Decision Making 48F with extensive medical hx and psych hx of anxiety and depression, here for worsening psych symptoms and off meds (xanax, zoloft) for 2 weeks. Denies SI/ HI. Denies hallucinations. 03/01/19 1350 Discussed the case extensively with the patient, rn case manager hospice, attending, senior resident, and ED certified social workers in health care. Plan to contact her PCP and [facility] for follow up appointment within the next day. 03/01/19 14:45 [facility]. Plan to d/c home with 5 days of xanax, zoloft with instructions to follow up with [facility] walk in clinic for continuity of care. Discussed the plan with the patient and the rn case manager hospice at bedside, who verbalized agreement and understanding with the plan. All questions answered. *DC/Admit/Observation/Transfer Diagnosis at time of Disposition: Medication refill - Discharge Dispostion Disposition: HOME Condition at time of disposition: Stable Decision to Admit order: No - Prescriptions Prescriptions: Alprazolam [Xanax] 1 mg PO Q12H #4 tablet MDD 2 Sertraline HCl [Zoloft] 100 mg PO BID #10 tablet - Referrals Referrals: Wilman Peralta MD [Primary Care Provider] - - Patient Instructions Additional Instructions: You are prescribed medications (xanax, zoloft) - please take these medications as prescribed. Please go to [facility] tomorrow during walk-in hours for continuity of care and medication refill. If you experience any new, worsening, or concerning, symptoms, including feelings of suicide or self harm, homicide, auditory or visual hallucinations, or any other concerns, please return to the nearest emergency department or to the mobile help unit at [facility]. - Post Discharge Activity Forms/Work/School Notes: My Personal Safety Plan
--- NOTE | 2019-03-01 14:54 | PDOC ---
Documentation entered by Altagracia Johns SCRIBE, acting as scribe for Jarod Brooks MD. Jarod Brooks MD: This documentation has been prepared by the Andreas barron Sammi, SCRIBE, under my direction and personally reviewed by me in its entirety. I confirm that the documentation accurately reflects all work, treatment, procedures, and medical decision making performed by me. Attending Attestation - Resident Resident Name: Damian Wong - ED Attending Attestation I have performed the following: I have examined & evaluated the patient, The case was reviewed & discussed with the resident, I agree w/resident's findings & plan, Exceptions are as noted - HPI HPI: 03/01/19 13:36 The patient is a 48 year old female, with a significant PMH of anxiety, depression, CHF, pancreatitis, who presents to the emergency department for evaluation of worsening depression, anxiety, panic attacks, with decreased PO and insomnia. The patient states she normally follows with [facility] in [place] but states she has missed a couple of appointments which caused them to close her case. She notes she has not taken her xanax or zoloft for 2 weeks due to inability to get evaluated with [facility]. Denies chest pain, shortness of breath, headache and dizziness. Denies fever, chills, nausea, vomiting, diarrhea and constipation. Denies dysuria, frequency, urgency and hematuria. Allergies: NKA Social history: None reported PCP: [facility]. Wilman Peralta ([facility]) - Physicial Exam PE: 03/01/19 14:44 Vitals: Triage vital signs reviewed General Appearance: No acute distress, well nourished, well developed Cardiac: Regular rate and rhythm, no murmurs, no rubs, no gallops Lungs: Clear to auscultation bilateral, good air movement bilaterally Abdomen: Soft, nondistended, normal bowel sounds, nontender to palpation Extremities: Full range of motion to all extremities, no cyanosis, clubbing, or edema Neuro: AOX3; Cranial Nerves 2-12 grossly intact, Strength intact to all extremities, Sensation intact to all extremities, gait normal Psych: No suicidal or homicidal ideation - Medical Decision Making 03/01/19 15:53 Patient with history of anxiety and depression secondary to noncompliance with her appointments lost her outpatient follow-up has been off her medications for 2 weeks she endorses worsening anxiety depression but no suicidal ideation, no homicidal ideation no thoughts or plan to harm herself or others she is in the emergency department with her date night caregiver requesting refills of her medications. No indication for acute inpatient psychiatric hospitalization. Pt. safe for out patient management It is my bilingual hr generalist pattern to not refill patient standing psychiatric medications however date night caregiver and patient state that they should be [facility] I will provide the patient with a 5 day course of her Zoloft and a 2 day course of her documented Xanax. They will return to the ED for any severe worsening symptoms patient has access to the mobile crisis unit [facility] symptoms worsen Findings, the need for follow-up and strict return instructions discussed with patient and date night caregiver.
== END 2019-03-01 15:46 | disposition home or self-care (01) ==
LOC: JER 12:13
DX: Z76.0 Encounter for issue of repeat prescription (principal); F41.9 Anxiety disorder, unspecified; F41.0 Panic disorder [episodic paroxysmal anxiety]; F32.9 Major depressive disorder, single episode, unspecified; F43.10 Post-traumatic stress disorder, unspecified
CPT/HCPCS: 99282-25